=== PATIENT | male | born 1965 | race Caucasian/White ===

== ENCOUNTER → 2018-07-20 | Outpatient (CLI) | payer MEDICAID ==
[~2018-07-20] MED LIST: DOXY100C PO; IBUP-2070 PO; RISP1 PO
[2018-07-20 08:00] VITALS: BP 137/79
== END | disposition home or self-care (01) ==
LOC: HBOWC 08:11
PROVIDERS: ATTEND Emergency Medicine
DX: T81.89XA Other complications of procedures, not elsewhere classified, initial encounter (principal); F10.129 Alcohol abuse with intoxication, unspecified; F19.10 Other psychoactive substance abuse, uncomplicated; F20.0 Paranoid schizophrenia; Z59.0 Homelessness; Y83.8 Other surgical procedures as the cause of abnormal reaction of the patient, or of later complication, without mention of misadventure at the time of the procedure; Y92.89 Other specified places as the place of occurrence of the external cause
CPT/HCPCS: 97597

== ENCOUNTER → 2018-08-10 | Outpatient (CLI) | payer MEDICAID ==
[~2018-08-10] MED LIST changes: -RISP1 PO
[2018-08-10 08:41] VITALS: BP 110/70
== END | disposition home or self-care (01) ==
LOC: HBOWC 07:15
PROVIDERS: ATTEND Emergency Medicine
DX: S51.002D Unspecified open wound of left elbow, subsequent encounter (principal); F20.0 Paranoid schizophrenia; F10.129 Alcohol abuse with intoxication, unspecified; F19.10 Other psychoactive substance abuse, uncomplicated; Z59.0 Homelessness; X58.XXXD Exposure to other specified factors, subsequent encounter
CPT/HCPCS: 11042